=== PATIENT | male | born 2000 | race Caucasian/White ===

== ENCOUNTER 2023-04-08 08:54 | Outpatient (REF) | payer BC, SELFPAY ==
--- NOTE | ~2023-04-08 | US_ITS ---
EXAMINATION: US SCROTUM CLINICAL INFORMATION: Lump left side of scrotum, not tender, no sign of infection. COMPARISON: None available. TECHNIQUE: A sonogram of the scrotum was performed assessing nichols-scale appearance and color Doppler flow. Spectral Doppler analysis of the arterial and venous flow were performed in the testes bilaterally. FINDINGS: RIGHT: Right testicle measures 4.3 x 2.1 x 3.2 cm, volume 15.1 mL. No focal testicular parenchymal lesions are visualized. Spectral Doppler analysis of the arterial and venous flow is normal in the right testis. Right epididymal head is normal in size. No right hydrocele or varicocele is seen. Right epididymal Doppler flow is normal. LEFT: Left testicle measures 3.7 x 2.3 x 3.3 cm, volume 14.7 mL. No focal testicular parenchymal lesions are visualized. Spectral Doppler analysis of the arterial and venous flow is normal in the left testis. Left epididymal head is normal in size. No left hydrocele or varicocele is seen. Left epididymal Doppler flow is normal. ADDITIONAL FINDINGS: There is a small hypoechoic mass seen in the scrotal tissues measuring 7 x 3 x 8 mm lateral to the left testis and epididymis which could represent a tiny cyst or tiny abscess. US/US scrotum IMPRESSION: 1. Normal-appearing testes. 2. Small hypoechoic mass in the left scrotal tissues which could represent a tiny cyst or tiny abscess. This could be followed clinically and if it does not resolve, then a follow-up ultrasound could be performed in 3-6 months. 3. Please note that a negative imaging report should not preclude further investigation of a clinically suspicious or palpable mass.
== END 2023-04-08 08:55 | disposition home or self-care (01) ==
LOC: HO.US 08:54
PROVIDERS: Visit Provider Family Medicine
DX: R19.00 Intra-abdominal and pelvic swelling, mass and lump, unspecified site (principal)
CPT/HCPCS: 76870